=== PATIENT | female | born 1990 ===

== ENCOUNTER 2018-01-26 10:16 | Outpatient (CLI) | payer OTHER ==
[~2018-01-26] VITALS: Ht 172.7 cm; Wt 72.6 kg
== END 2018-01-26 10:30 | disposition home or self-care (01) ==
LOC: OFIC 805 10:16
DX: H61.23 Impacted cerumen, bilateral (principal); R42 Dizziness and giddiness; H90.3 Sensorineural hearing loss, bilateral; J30.89 Other allergic rhinitis